=== PATIENT | male | born 1945 | race Caucasian/White ===

== ENCOUNTER → 2016-06-26 | Day surgery (SDC) | payer MEDICARE ==
[~2016-06-26] VITALS: Ht 175.3 cm; Wt 108.0 kg
[~2016-06-26] MED LIST: ASPI325T PO; D5W 1,000 ML IV SCH; DULE200A IN; GLIM1TAB PO; LASI40TA PO; LIDOCAINE 1% SDV INJ 30 ML VIAL As Ordered ONE; LIDOCAINE 1% SDV INJ 30 ML VIAL XX ONE; LIDOCAINE 2% INJ 100 MG/5 ML SDV (FOR ANES.) As Ordered ONE; LOSA50TA21 PO; METO50TA2 PO; MIDAZOLAM INJ 2 MG/2 ML VIAL (J2250) As Ordered ONE; NITR4PA EXT; PROPOFOL 200 MG/20 ML VIAL As Ordered ONE; RANI15TA PO; SIMV40TA2 PO; VANCOMYCIN 1000 MG/20 ML VIAL (J3370) As Ordered ONE; fentaNYL 100 MCG/2 ML INJECTION (J3010) As Ordered ONE
[2016-06-26 15:00] VITALS: BP 134/85
--- NOTE | 2016-06-26 16:31 | RO ---
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 FINDINGS: Pacemaker battery depletion of dual chamber pacemaker pulse generator. OPERATIVE PROCEDURE: Explantation of old dual chamber pacemaker pulse generator and implantation of new dual chamber pacemaker pulse generator. SURGEON: Mohamud Christian MD EMERGENCY MEDICINE PHYSICIAN: None. ANESTHESIA: Lidocaine 1% local anesthetic/monitored anesthetic care. SPECIMENS: Old dual chamber pacemaker pulse generator. ESTIMATED BLOOD LOSS: Less than 10 ml. BLOOD PRODUCTS REPLACED: None. DRAINS: None. COMPLICATIONS: None. DESCRIPTION OF OPERATION: The patient was prepped and draped over the right pectoral region. Lidocaine 1% was used for local anesthetic. An incision was made along the length of the existing pacemaker incision using a PEAK PlasmaBlade. The PEAK PlasmaBlade was used to get through the tissue over top of the pacemaker pulse generator and through the anterior capsule. The stitch holding down the pulse generator was cut. The existing pulse generator was then removed from the pocket and each of the leads was removed after loosening the set screws. The existing atrial and ventricular leads were plugged into their respective ports in the new pacemaker pulse generator and each one secured by tightening the set screws with the Hex screwdriver. The new pacemaker pulse generator was then placed back into the pacemaker pocket. The device was tested wirelessly in the operating room and found to be satisfactory (see below). The deep layer was closed using individual sutures consisting of #2-0 Vicryl. The skin was closed using continuous #4-0 Biosyn suture material with the first knot buried and the last stitch finished with an [place] knot and then pulled through the level of the skin and snipped at the level of the skin. Next two layers of Dermabond was applied over the incision. The patient tolerated the procedure well without any immediate complications. The existing pacemaker pulse generator that was explanted was a [employer] model #5366, serial #[id number] originally implanted 09/15/2015. The new pacemaker pulse generator implanted was a [employer] BOSWELL, model #[id number] with serial #[id number]. The existing right atrial lead was a [employer] model 1688T with serial #[id number]. Testing in the operating room via the new pacemaker device showed in bipolar configuration right atrial lead capture of 0.75 volts at 0.4 ms with T wave of 5 mV and lead impedance of 380 ohms. The existing ventricular lead was a [employer] model 1688T with serial #[id number]. Testing in the operating room via the new pacemaker pulse generator device based testing showed capture threshold in the ventricle of 0.6 volts at 0.4 ms with R wave amplitude of 10 mV and lead impedance of 550 ohms.
== END | disposition home or self-care (01) ==
LOC: M SDC 12:01
PROVIDERS: ATTEND Internal Medicine Cardiovascular Disease
DX: Z45.010 Encounter for checking and testing of cardiac pacemaker pulse generator [battery] (principal); I10 Essential (primary) hypertension; Z95.0 Presence of cardiac pacemaker; E11.9 Type 2 diabetes mellitus without complications; Z87.891 Personal history of nicotine dependence; E66.9 Obesity, unspecified; D69.49 Other primary thrombocytopenia
CPT/HCPCS: 33228; 36415; 80048; 85027; C1785; J0690; J2250; J3010; J3370

== ENCOUNTER → 2016-06-26 | Outpatient (CLI) | payer MEDICARE ==
[~2016-06-26] MED LIST changes: -D5W 1,000 ML IV SCH; -LIDOCAINE 1% SDV INJ 30 ML VIAL As Ordered ONE; -LIDOCAINE 1% SDV INJ 30 ML VIAL XX ONE; -LIDOCAINE 2% INJ 100 MG/5 ML SDV (FOR ANES.) As Ordered ONE; -MIDAZOLAM INJ 2 MG/2 ML VIAL (J2250) As Ordered ONE; -PROPOFOL 200 MG/20 ML VIAL As Ordered ONE; -VANCOMYCIN 1000 MG/20 ML VIAL (J3370) As Ordered ONE; -fentaNYL 100 MCG/2 ML INJECTION (J3010) As Ordered ONE
[2016-06-26 12:33] LABS: MEAN CORPUSCULAR HEMOGLOBIN 29.4 pg (27.0-33.0); MEAN CORPUSCULAR HGB CONC 33.6 g/dl (32.0-36.5); MEAN CORPUSCULAR VOLUME 87.5 fl (80.0-96.0); RED CELL DISTRIBUTION WIDTH 13.1 % (11.5-14.5)
[2016-06-26 12:40] LABS: CALCIUM LEVEL 9.2 MG/DL (8.8-10.2); CREATININE FOR GFR 1.45 MG/DL (0.70-1.30); GLOMERULAR FILTRATION RATE 50.9 (>42); POTASSIUM SERUM 4.5 MEQ/L (3.5-5.1)
== END ==
LOC: M LAB 11:25
PROVIDERS: ATTEND Internal Medicine Cardiovascular Disease
DX: I10 Essential (primary) hypertension (principal); Z95.0 Presence of cardiac pacemaker